=== PATIENT | female | born 1935 | race Caucasian/White ===

== ENCOUNTER 2021-08-20 16:54 | Inpatient (IN) ==
[2021-08-20] MEDS ORDERED: dexAMETHasone**PF** 10 MG/ML VIAL IV ONE (23:12)
[2021-08-20] MEDS ORDERED: SODIUM CHLORIDE 0.9% 1000ML 1,000 ML IV ONE (23:12)
[2021-08-20] MEDS ORDERED: ACETAMINOPHEN 1,000 MG/100 ML VIAL IV STA (23:12)
[2021-08-20 23:51] LABS: Basophils # (auto) 0.03 K/uL (0-0.2); Basophils % (auto) 0.5 %; Eosinophils # (auto) 0.14 K/uL (0-0.5); Eosinophils % (auto) 2.1 %; Hematocrit (blood only) 47.2 % (37-47); Hemoglobin 15.6 g/dL (12.0-16.0); Immature Granulocytes # (auto) 0.01 K/uL (0.00-0.02); Immature Granulocytes % (auto) 0.2 %; Lymphocytes # (auto) 2.57 K/uL (1.2-3.4); Lymphocytes % (auto) 39.2 %; Mean Corpuscular Hemoglobin 30.4 pg (25-34); Mean Corpuscular Hgb Conc 33.1 g/dL (32-36); Mean Corpuscular Volume 91.8 fL (80-100); Mean Platelet Volume 9.9 fL (7.4-10.4); Monocytes % (auto) 4.6 %; Neutrophils % (auto) 53.4 %; Platelet Count 226 K/uL (130-400); RDW Standard Deviation 44.1 fL (36.4-46.3); Red Blood Count 5.14 M/uL (4.2-5.4); White Blood Count 6.55 K/uL (4.8-10.8)
[2021-08-20 23:55] LABS: Appearance Urine Clear (Clear); Bacteria Urine Automated 4+ (Negative); Bilirubin Urine Negative (Negative); Blood Urine Negative (Negative); Color Urine Yellow; Glucose Urine UA Negative (Negative); Ketones Urine 1+ (Negative); Leukocyte Esterase Urine Negative (Negative); Nitrite Urine Positive (Negative); Protein Urine Negative (Negative); RBC Urine Automated 0-4 /hpf (0-4); Specific Gravity Urine 1.013 (1.000-1.030); Urobilinogen Urine Negative (Negative)
[2021-08-21 00:14] LABS: Alanine Aminotransferase 22 U/L (12-78); Albumin Level 4.1 gm/dl (3.4-5.0); Aspartate Aminotransferase 18 U/L (15-37); BUN Creatinine Ratio 14.8 (10-20); Bilirubin Direct 0.1 mg/dl (0-0.2); Blood Urea Nitrogen 11 mg/dl (7-18); Calcium 9.5 mg/dl (8.5-10.1); Carbon Dioxide 26 mmol/L (21-32); Chloride 105 mmol/L (98-107); Creatinine Clr Calc Pharmacy 42.8 ml/min; Est GFR (African American) 80.5 ml/min; Est GFR (Non-African American) 69.4 ml/min; Glucose 96 mg/dl (70-99); Lipase 320 U/L (73-393); Magnesium 2.4 mg/dl (1.8-2.4); Potassium 3.9 mmol/L (3.5-5.1); Sodium 139 mmol/L (136-145)
[2021-08-21 00:23] LABS: Albumin Globulin Ratio 0.9 (0.9-2); Alkaline Phosphatase 97 U/L (45-117); Bilirubin,Total 0.4 mg/dl (0.2-1); Globulin 4.5 gm/dl (2.5-4.0); Phosphorus 3.6 mg/dl (2.5-4.9); Total Protein 8.6 gm/dl (6.4-8.2); Troponin I < 0.015 ng/ml (0-0.045)
[2021-08-21 00:36] LABS: T4 Free Thyroxine 1.32 ng/dl (0.8-1.6)
[2021-08-21] MEDS ORDERED: OPTIRAY 320 125ml IV ONE (01:03)
--- NOTE | 2021-08-21 02:05 | Emergency Department Note ---
Impression & Plan Changes in vision, Retinal migraine, Macular degeneration, Cerebrovascular disease ED Provider Note NAME: EPI ALEXANDRA AGE: 85 SEX: F ARRIVES VIA: Walk-In INFORMANT: Patient, ED PROVIDER(S): Moses Lopez MD CHIEF COMPLAINT: Vision changes. PLAN: Disposition: Admit MEDICAL DECISION MAKING: The patient is a pleasant 85-year-old woman with a past medical history of hypertension, hyperlipidemia, cerebrovascular disease, migraine headaches, retinal migraines, macular degeneration who presents to the emergency department for evaluation of ongoing vision changes which she describes "spider-like veins" in her field of vision of both eyes that has been ongoing for the past 4 days where she was seen by her food assembler commissary kitchen on Friday and per her report there was no acute changes in her macular degeneration and also seen by her neurologist where she had increased dose of her verapamil per her report for suspected migraine component both instructed to come to the hospital for an MRI if her symptoms do not improve which they did not. She denies any fevers, chills, cough congestion, GI or symptoms. She denies any weakness in her extremities or difficulty with ambulation. On arrival patient is no acute distress, afebrile stable vital signs. She appears clinically dry. She has no focal neurologic deficits. Patient's gross vision is intact at her baseline. EKG without overt acute ischemia. Chest x-ray negative for acute cardiopulmonary process per my preliminary review. WBC, hemoglobin and platelets within normal limits. Chemistry without metabolic acidosis. Electrolytes and FTs unremarkable. Troponin negative/undetectable. Lipase not elevated. T SH is cellulitic 4.6 but with free T4 within normal limits. UA with the possibility of infection albeit with epithelial cells present. Will defer treatment to admitting team given the patient denies urinary symptoms. COVID-19 PCR was negative. Per preliminary stat rad report CT of the head and CTA of the head and neck were performed and negative for ICH, ischemia or severe narrowing or occlusion of large vessels. Given the patient's symptoms that are worse from her baseline the patient is in agreement with plan for admission for further evaluation including MRI. Case was discussed with Dr. Viera, [facility] hospitalist, who will evaluate the patient for admission. Triage Nursing notes reviewed and agree them. Prior medical records reviewed Vital Signs: reviewed and remarkable for no significant abnormalities Differential diagnosis: Infection, dehydration, metabolic abnormality, hypo/hyperglycemia, electrolyte disturbance, anemia, hypoxia, cardiac sources, intracerebral event, toxicologic, neurologic, as well as other pathologies. ER treatment provided: See below. Diagnostics interpreted by me: ECG: Normal sinus rhythm, 66 bpm, no ectopy, no overt ST elevation depression, QTC 406, QRS 80. Cardiac Monitoring: An order for continuous cardiac monitoring was placed and demonstrated normal sinus rhythm, 66 bpm, no ectopy. 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 Otherwise normal wrangell of [place] with no evidence of stenosis, occlusion or aneurysm. Radiologist: Ines Almeida MD Study ready at 01:04 and initial results transmitted at 02:24 Preliminary Findings Only See Final Report For Complete Findings CT HEAD: Comparison: None. There is a skull defect along the outer table of the vertex otherwise no acute skull fracture seen. No ICH, mass effect or edema. No evidence of acute cortical stroke. Periventricular small vessel ischemic change. Moderate generalized brain atrophy. Visualized sinuses and mastoid air cells are clear. Radiologist: Ines Almeida MD Study ready at 01:02 and initial results transmitted at 01:57 Preliminary Findings Only See Final Report For Complete Findings CTA NECK: No stenosis, occlusion or dissection. Mild atherosclerotic disease throughout the aortic arch and origin of great vessels. Mild scattered atherosclerotic disease throughout the bilateral carotid arteries . Otherwise unremarkable bilateral carotid arteries with no stenosis, occlusion or dissection. Normal bilateral vertebral arteries Radiologist: Ines Almeida MD Study ready at 01:02 and initial results transmitted at 02:22 Consultation(s): Case was discussed with Dr. Viera, [facility]ist, who will evaluate the patient for admission. HPI: The patient is a pleasant 85-year-old woman with a past medical history of hypertension, hyperlipidemia, cerebrovascular disease, migraine headaches, retinal migraines, macular degeneration who presents to the emergency department for evaluation of ongoing vision changes which she describes "spider-like veins" in her field of vision of both eyes that has been ongoing for the past 4 days where she was seen by her food assembler commissary kitchen on Friday and per her report there was no acute changes in her macular degeneration and also seen by her neurologist where she had increased dose of her verapamil per her report for suspected migraine component both instructed to come to the hospital for an MRI if her symptoms do not improve which they did not. She denies any fevers, chills, cough congestion, GI or symptoms. She denies any weakness in her extremities or difficulty with ambulation. ROS: See above HPI for pertinent positives & negatives. A total of 10 systems reviewed and were otherwise negative. PAST MEDICAL HISTORY:See Below PAST SURGICAL HISTORY:See Below FAMILY HISTORY:See Below SOCIAL HISTORY:See Below HOME MEDICATIONS:See Below ALLERGIES:See Below VITALS:See Below PHYSICAL EXAMINATION: GENERAL: Awake, alert, well-appearing, in no distress HENT: Normocephalic, atraumatic. Oropharynx with dry mucous membranes and otherwise unremarkable. EYES: Normal conjunctiva. Sclera non-icteric. EOMI. No nystamgus. PEARRL. NECK: Supple. No nuchal rigidity. FROM. No JVD. RESPIRATORY: Clear to auscultation. CARDIAC: Regular rate, normal rhythm. Extremities warm and well perfused. Pulses equal. ABDOMEN: Soft, non-distended. No tenderness to palpation. No rebound or guarding. No masses. RECTAL: Deferred. MUSCULOSKELETAL: Chest examination reveals no tenderness. The back is symmetrical on inspection without obvious abnormality. There is no CVA tenderness to palpation. No joint edema. LOWER EXTREMITIES: Calves are equal size bilaterally and non-tender. No edema. No discoloration. NEURO: Normal sensorium. No sensory or motor deficits noted. 5/5 strength and SILT x 4 extremities. Cerebellar function intact including [id number], alte rnating palms, [id number]. SKIN: No rash or jaundice noted. Moses Lopez MD Past Med/Surg History Medical History (Updated 08/22/21 @ 02:20 by Moses Lopez MD) Hyperlipidemia Hypertension Migraine headache with aura Poor balance Retinal migraine Vertigo Surgical History H/O eye surgery H/O lumpectomy Family History Grandmother Classic migraine Mother Classic migraine Heart disease Father Stroke syndrome Social History Smoking Status: Never smoker Hx Alcohol Use: No Hx Substance Use: No Preferred Language: Wolof Communication Ability: Effective Machine Inspector Required: No Beliefs That Will Affect Care: None Current Living Situation: Family Feels Safe at Home: Yes Assistive Devices: Cane Allergies Allergies Allergy/AdvReac Type Severity Reaction Status Date / Time amoxicillin Allergy Unknown Unknown Verified 08/21/21 06:43 Home Meds Home Medications Medication Instructions Recorded Confirmed cholecalciferol (vitamin D3) 50 2,000 unit PO DAILY tab 07/03/20 08/17/21 mcg (2,000 unit) tablet levothyroxine 75 mcg tablet 75 mcg PO DAILY tab 07/03/20 08/17/21 simvastatin 10 mg tablet 10 mg PO DAILY tab 07/03/20 08/17/21 Previous Rx's Medication Instructions Recorded mecobalamin (vitamin B12) 1,000 1,000 mcg SUBLINGUAL DAILY #30 tab 08/17/21 mcg disintegrating tablet,sublingual ondansetron HCl 4 mg tablet 4 mg PO DAILY PRN #20 tab 08/17/21 (Zofran) verapamil 240 mg 24 hr 240 mg PO DAILY #30 cap 08/17/21 capsule,extended release Results & Data (ED) Vital Signs Vital Signs - 24 hr 08/21/21 04:38 Pulse Rate 63 Pulse Rate [Finger] 62 Blood Pressure [Right Arm] 149/68 H Blood Pressure Mean [Right Arm] 95 Pulse Oximetry 92 Oxygen Delivery Method Room Air Laboratory Data Attestation: I reviewed the patient's lab results. Result diagrams: 08/20/21 23:21 08/20/21 23:21 Lab Results 08/20/21 08/20/21 08/20/21 Range/Units 23:21 23:21 23:21 WBC 6.55 (4.8-10.8) K/uL RBC 5.14 (4.2-5.4) M/uL Hgb 15.6 (12.0-16.0) g/dL Hct 47.2 H (37-47) % MCV 91.8 (80-100) fL MCH 30.4 (25-34) pg MCHC 33.1 (32-36) g/dL RDW Std Deviation 44.1 (36.4-46.3) fL RDW Coeff of Penelope 13.0 (11.5-14.5) % Plt Count 226 (130-400) K/uL MPV 9.9 (7.4-10.4) fL Immature Gran % (Auto) 0.2 % Neut % (Auto) 53.4 % Lymph % (Auto) 39.2 % Linn % (Auto) 4.6 % Eos % (Auto) 2.1 % Baso % (Auto) 0.5 % Neut # (Auto) 3.50 (1.4-6.5) K/uL Lymph # (Auto) 2.57 (1.2-3.4) K/uL Linn # (Auto) 0.30 (0.11-0.59) K/uL Eos # (Auto) 0.14 (0-0.5) K/uL Baso # (Auto) 0.03 (0-0.2) K/uL Immature Gran # (Auto) 0.01 (0.00-0.02) K/uL Sodium 139 (136-145) mmol/L Potassium 3.9 (3.5-5.1) mmol/L Chloride 105 (98-107) mmol/L Carbon Dioxide 26 (21-32) mmol/L Anion Gap 7.0 (3-11) BUN 11 (7-18) mg/dl Creatinine 0.77 (0.6-1.2) mg/dl Est Cr Clr Drug Dosing 42.8 ml/min Est GFR ( Amer) 80.5 ml/min Est GFR (Non-Af Amer) 69.4 ml/min BUN/Creatinine Ratio 14.8 (10-20) Glucose 96 (70-99) mg/dl Calcium 9.5 (8.5-10.1) mg/dl Phosphorus 3.6 (2.5-4.9) mg/dl Magnesium 2.4 (1.8-2.4) mg/dl Total Bilirubin 0.4 (0.2-1) mg/dl Direct Bilirubin 0.1 (0-0.2) mg/dl AST 18 (15-37) U/L ALT 22 (12-78) U/L Alkaline Phosphatase 97 (45-117) U/L Troponin I < 0.015 (0-0.045) ng/ml Total Protein 8.6 H (6.4-8.2) gm/dl Albumin 4.1 (3.4-5.0) gm/dl Globulin 4.5 H (2.5-4.0) gm/dl Albumin/Globulin Ratio 0.9 (0.9-2) Lipase 320 (73-393) U/L TSH 4.630 H (0.300-4.500) uIu/ml Free T4 1.32 (0.8-1.6) ng/dl Urine Color Yellow Urine Appearance Clear (Clear) Urine pH 5.0 (4.5-7.5) Ur Specific Hanson 1.013 (1.000-1.030) Urine Protein Negative (Negative) Urine Glucose (UA) Negative (Negative) Urine Ketones 1+ H (Negative) Urine Blood Negative (Negative) Urine Nitrite Positive A (Negative) Urine Bilirubin Negative (Negative) Urine Urobilinogen Negative (Negative) Ur Leukocyte Esterase Negative (Negative) Urine WBC (Auto) 1-5 (0-5) /hpf Urine RBC (Auto) 0-4 (0-4) /hpf U Hyaline Cast (Auto) 1-5 (0-5) /lpf U Epithel Cells (Auto) 5-10 H (0-5) /lpf Urine Bacteria (Auto) 4+ H (Negative) COVID-19 Eval Order SARS-CoV-2 (PCR) (Negative) 08/20/21 08/20/21 Range/Units 23:28 23:28 WBC (4.8-10.8) K/uL RBC (4.2-5.4) M/uL Hgb (12.0-16.0) g/dL Hct (37-47) % MCV (80-100) fL MCH (25-34) pg MCHC (32-36) g/dL RDW Std Deviation (36.4-46.3) fL RDW Coeff of Penelope (11.5-14.5) % Plt Count (130-400) K/uL MPV (7.4-10.4) fL Immature Gran % (Auto) % Neut % (Auto) % Lymph % (Auto) % Linn % (Auto) % Eos % (Auto) % Baso % (Auto) % Neut # (Auto) (1.4-6.5) K/uL Lymph # (Auto) (1.2-3.4) K/uL Linn # (Auto) (0.11-0.59) K/uL Eos # (Auto) (0-0.5) K/uL Baso # (Auto) (0-0.2) K/uL Immature Gran # (Auto) (0.00-0.02) K/uL Sodium (136-145) mmol/L Potassium (3.5-5.1) mmol/L Chloride (98-107) mmol/L Carbon Dioxide (21-32) mmol/L Anion Gap (3-11) BUN (7-18) mg/dl Creatinine (0.6-1.2) mg/dl Est Cr Clr Drug Dosing ml/min Est GFR ( Amer) ml/min Est GFR (Non-Af Amer) ml/min BUN/Creatinine Ratio (10-20) Glucose (70-99) mg/dl Calcium (8.5-10.1) mg/dl Phosphorus (2.5-4.9) mg/dl Magnesium (1.8-2.4) mg/dl Total Bilirubin (0.2-1) mg/dl Direct Bilirubin (0-0.2) mg/dl AST (15-37) U/L ALT (12-78) U/L Alkaline Phosphatase (45-117) U/L Troponin I (0-0.045) ng/ml Total Protein (6.4-8.2) gm/dl Albumin (3.4-5.0) gm/dl Globulin (2.5-4.0) gm/dl Albumin/Globulin Ratio (0.9-2) Lipase (73-393) U/L TSH (0.300-4.500) uIu/ml Free T4 (0.8-1.6) ng/dl Urine Color Urine Appearance (Clear) Urine pH (4.5-7.5) Ur Specific Hanson (1.000-1.030) Urine Protein (Negative) Urine Glucose (UA) (Negative) Urine Ketones (Negative) Urine Blood (Negative) Urine Nitrite (Negative) Urine Bilirubin (Negative) Urine Urobilinogen (Negative) Ur Leukocyte Esterase (Negative) Urine WBC (Auto) (0-5) /hpf Urine RBC (Auto) (0-4) /hpf U Hyaline Cast (Auto) (0-5) /lpf U Epithel Cells (Auto) (0-5) /lpf Urine Bacteria (Auto) (Negative) COVID-19 Eval Order Covid19 at [facility] SARS-CoV-2 (PCR) NEGATIVE (Negative) Administered Medications Cyanocobalamin (Cyanocobalamin 500 Mcg Tablet (Vitamin B-12)) 1,000 mcg PO DAILY DELMI Stop: 09/20/21 08:59 Last Admin: 08/21/21 08:48 Dose: 1,000 mcg Documented by: [id number] Ceftriaxone Sodium 1,000 mg/ (Dextrose) 50 mls @ 100 mls/hr IV Q24H DELMI; Protocol Stop: 08/31/21 07:59 Last Infusion: 08/21/21 10:13 Dose: 0 mls/hr Documented by: [id number] Admin: 08/21/21 08:48 Dose: 100 mls/hr Documented by: [id number] Levothyroxine Sodium (Levothyroxine Sodium 75 Mcg Tablet) 75 mcg PO DAILYBB DELMI Stop: 09/20/21 07:59 Last Admin: 08/21/21 08:48 Dose: 75 mcg Documented by: [id number] Simvastatin (Simvastatin 10 Mg Tab) 10 mg PO DAILY DELMI Stop: 09/20/21 08:59 Last Admin: 08/21/21 08:48 Dose: 10 mg Documented by: [id number] Verapamil HCl (Verapamil Hcl 240 Mg Tabcr) 240 mg PO DAILY DELMI Stop: 09/20/21 08:59 Last Admin: 08/21/21 08:48 Dose: 240 mg Documented by: [id number] Vitamin D (Cholecalciferol 1,000 Units 25 Mcg Tab) 2,000 units PO DAILY DELMI Stop: 09/20/21 08:59 Last Admin: 08/21/21 08:48 Dose: 2,000 units Documented by: [id number] Discontinued Medications Dexamethasone Sodium Phosphate (DexamethasonePf 10 Mg/Ml Vial) 10 mg IV NOW ONE Stop: 08/20/21 23:13 Last Admin: 08/20/21 23:55 Dose: 10 mg Documented by: [id number] Gadobutrol (Gadobutrol 65ml Vial) 6 ml IV ONCE ONE Stop: 08/21/21 08:04 Last Admin: 08/21/21 08:03 Dose: 6 ml Documented by: [id number] Sodium Chloride (Nss 1000ml) 1,000 mls @ 999 mls/hr IV .Q1H1M ONE Stop: 08/21/21 00:12 Last Infusion: 08/21/21 00:48 Dose: 0 mls/hr Documented by: [id number] Admin: 08/20/21 23:55 Dose: 999 mls/hr Documented by: [id number] Acetaminophen (Ofirmev) 1,000 mg in 100 mls @ 400 mls/hr IV NOW STA Stop: 08/20/21 23:26 Last Infusion: 08/21/21 00:29 Dose: 0 mls/hr Documented by: [id number] Admin: 08/20/21 23:54 Dose: 400 mls/hr Documented by: [id number] Sodium Chloride (Nss 1000ml) 1,000 mls @ 80 mls/hr IV .[id number] DELMI Stop: 08/21/21 19:10 Last Infusion: 08/21/21 12:08 Dose: 0 mls/hr Documented by: [id number] Admin: 08/21/21 08:56 Dose: 80 mls/hr Documented by: [id number] Ioversol (Optiray 320 125ml) 125 ml IV ONCE ONE Stop: 08/21/21 01:04 Last Admin: 08/21/21 01:03 Dose: 117 ml Documented by: [id number] Discharge Plan Visit Data Chief Complaint: Eye Problems Stated Complaint: EYES SEEING MIGRAINE AURA ED Provider: Moses Lopez Discharge Problem: Changes in vision, Retinal migraine, Macular degeneration, Cerebrovascular disease Patient Disposition: Admitted As Inpatient Discharge Instructions Interventions: ED Discharge Assessment Last Done: 08/21/21 06:41
[2021-08-21] MEDS ORDERED: POLYETHYLENE (MIRALAX) 17 GM PACK PO PRN (06:41)
[2021-08-21] MEDS ORDERED: SODIUM CHLORIDE 0.9% 1000ML 1,000 ML IV SCH (06:41)
[2021-08-21] MEDS ORDERED: ONDANSETRON INJ 2 MG/ML 2 ML VIAL IV PRN (06:41)
[2021-08-21] MEDS ORDERED: NITROGLYCERIN SL 0.4 MG/TAB TAB SL PRN (06:41)
[2021-08-21] MEDS ORDERED: ACETAMINOPHEN 325 MG TAB PO PRN (06:41)
--- NOTE | 2021-08-21 07:13 | CT Scan Report ---
CT ANGIOGRAM OF THE NECK CLINICAL HISTORY: Migraine headache. Visual changes. COMPARISON STUDY: No priors. TECHNIQUE: Following the IV administration of 117 of Optiray 320, CT angiogram of the neck was perfor med from the aortic arch to the skull base. Images are reviewed in the axial, sagittal, and coronal p lanes. 3-D MIPS images are created and assessed. IV contrast was administered without complication. A ll measurements were calculated based on NASCET criteria. A dose lowering technique was utilized adh ering to the principles of ALARA. FINDINGS: Thoracic aorta: Visualized portions of the thoracic aorta are normal in caliber. The aortic arch demo nstrates standard 3-vessel anatomy. Right carotid arterial system: The right common carotid artery is widely patent, as are the right int ernal and external carotid arteries. Left carotid arterial system: The left common carotid artery is widely patent, as are the left sales management intern al and external carotid arteries. Vertebral arteries: The vertebral arteries are widely patent bilaterally noting mild right-sided jimena nance. Subclavian arteries: Widely patent bilaterally. Intracranial vasculature: The visualized intracranial vessels at the skull base are patent. Jugular veins: Widely patent bilaterally. Brain parenchyma: The visualized brain parenchyma the skull base is within normal limits noting age-r elated involutional change. Lung apices: Suspect mild emphysema. Intralobular septal thickening is observed at the apices. Soft tissues: The visualized pharyngeal soft tissues are normal in appearance noting angiographic pha se technique. The oropharyngeal airway appears widely patent. The salivary and thyroid glands are nor mal in appearance. No cervical lymphadenopathy is seen. Skeletal structures: The skeletal structures are osteopenic. The visualized calvarium at the skull ba se appears intact. The imaged cervical spine is maintained noting multilevel spondylosis. No lytic or blastic lesion is seen. Sinuses and mastoids: The visualized paranasal sinuses are clear. The mastoid air cells are well pneu matized. IMPRESSION: 1. Unremarkable CT angiogram of the neck. 2. Intralobular septal thickening is noted in the upper lobes. This could be seen with acute versus c hronic congestive change and clinical correlation will be essential. ACT 112: Negative or not required by law. Electronically signed by: Fausto Ivan M.D. 08/21/2021 7:12 AM
--- NOTE | 2021-08-21 07:31 | History and Physical Report ---
DATE OF ADMISSION: 08/21/2021. CHIEF COMPLAINT: Bilateral vision problems. HISTORY OF PRESENT ILLNESS: This is an 85-year-old female with past medical history significant for hypothyroidism, hyperlipidemia, osteoporosis, chronic migraine, macular degeneration comes with vision problems since the last 4-5 days. She is seeing veins with blood in it and also different colors in the eyes and it happens to both eyes on and off, one eye at a time. No headache. She saw her head of design and exam was okay and she saw neurologist on last Friday. Her verapamil dose was increased and advised to come to the ER if it is not getting better, that is why she is here for MRI scan of the brain. Denies any headache. Denies any other complaints. Vision is okay. No double vision, no earache, no runny nose, no sore throat, no cough, no nausea, no vomiting, no chest pain, no shortness of breath. Appetite is okay. Ambulating with a cane. Lives with her daughter. Normal bowel and bladder movements. Currently, resting comfortably and hemodynamically stable. ALLERGIES: AMOXICILLIN. PAST MEDICAL HISTORY: As mentioned above. PAST SURGICAL HISTORY: Cataract and left breast benign tumor removed. MEDICATIONS: The patient is currently on vitamin D 2000 units p.o. daily, levothyroxine 75 mcg p.o. daily, vitamin B12 1000 mcg sublingual daily, Zofran 4 mg p.o. daily p.r.n., simvastatin 10 mg p.o. daily, verapamil 240 mg p.o. daily. FAMILY HISTORY: Significant for daughter has heart disorder; mother had heart disorder, father had stroke, daughter has thyroid disorder. SOCIAL HISTORY: Lives with her daughter. No smoking, no alcohol, no drug use. REVIEW OF SYSTEMS: As per HPI. Rest of review of systems is negative. PHYSICAL EXAMINATION: GENERAL: The patient is old and frail, not in acute distress. VITAL SIGNS: Temperature 36.5, pulse 62, respiratory rate 20, blood pressure 149/68, oxygen 92% on room air. HEENT: Pupils equal, round and reactive to light. Extraocular muscles intact. NECK: No JVD, no neck masses. CARDIOVASCULAR: S1 and S2 heard. Regular rate and rhythm. No murmur, no gallop. RESPIRATORY: Normal AP diameter. No accessory muscle use. No wheezing, no crackles. ABDOMEN: Soft, bowel sounds present, nontender, no distention. CENTRAL NERVOUS SYSTEM: Cranial nerves II-XII grossly intact, nonfocal. power 5/5 all extremities. No pronator drift. Coordination was normal. Sensation is intact. EXTREMITIES: No edema, no erythema. LABORATORY DATA: WBC 6.5, hemoglobin 15.6, hematocrit 47.2, platelets 226. Sodium 139, potassium 3.9, chloride 105, bicarbonate 26, BUN 11, creatinine 0.7, serum glucose 96, calcium 9.5, phosphorus 3.6, magnesium 2.4, total bilirubin 0.4, direct bilirubin 0.1, AST 18, ALT 22, alkaline phosphatase 97. Troponin I less than 0.015. TSH 4.6, free T4 of 1.3, lipase 320. Urinalysis positive for leukocyte esterase and +4 bacteria. SARS-CoV-2 PCR negative. IMAGING DATA: Chest x-ray, no acute findings. CT of the head and CTA of the head and neck, preliminary report was unremarkable. EKG: Normal sinus rhythm at a rate of 66, no acute ST changes seen. ASSESSMENT AND PLAN: An 85-year-old female presents with ongoing vision problem. 1. Bilateral vision problems, the patient is seeing things in different colors, vein like structures in both eyes on and off, one eye at a time. Denies any headaches. Possible visual migraines, patient has history of migraines. Recently the neurologist increased the verapamil dose, but symptoms are not improving. Plan for MRI of the head. We will consult Neurology and monitor in the [facility]. 2. Urinary tract infection, on Rocephin. Follow the cultures. 3. History of hyperlipidemia: Continue statin. 4. Hypothyroidism. Continue Synthroid. 5. Deep venous thrombosis prophylaxis: Sequential compression devices for now. DISPOSITION: Admit to [facility]. PT/OT prior to discharge. Social service to help with discharge planning. Job ID: [id number] [facility]
--- NOTE | 2021-08-21 08:00 | XRay Report ---
XR chest 1V portable CLINICAL HISTORY: Atypical chest pain TECHNIQUE: Single frontal radiograph of the chest was obtained. Comparison: None available at the time of this dictation. FINDINGS: Dextroscoliosis is seen. There is likely mild cardiomegaly. The lungs are clear. No evidence of pleur al effusion or pneumothorax. IMPRESSION: No acute chest disease. ACT 112: Negative or not required by law. Electronically signed by: Phani Lemus M.D. 08/21/2021 7:58 AM
[2021-08-21] MEDS ORDERED: GADOBUTROL 65ML VIAL IV ONE (08:03)
--- NOTE | 2021-08-21 08:09 | Electrocardiogram Report ---
Test Reason : Blood Pressure : / mmHG Vent. Rate : 066 BPM Atrial Rate : 066 BPM P-R Int : 208 ms QRS Dur : 080 ms QT Int : 388 ms P-R-T Axes : 034 006 025 degrees QTc Int : 406 ms Normal sinus rhythm Normal ECG When compared with ECG of 30-JUL-2001 15:15, Borderline criteria for Inferior infarct are no longer Present Confirmed by Luis Yip ([id number]) on 08/21/2021 8:08:57 AM Referred By: Matti Rendon Confirmed By:Luis Yip
--- NOTE | 2021-08-21 08:11 | CT Scan Report ---
CT angio head w con, CT head/brain wo con CLINICAL HISTORY: vision changes/h/o retinal migraine/mac degen TECHNIQUE: Contiguous axial CT images of the head were acquired from the base of the skull to the justus lianet without intravenous contrast administration. CT angiography of the head was performed following intravenous administration of iodinated contrast. Automated dose lowering techniques and/or adjustmen t according to patient size were utilized for this examination. Comparison: None available at the time of this dictation. FINDINGS: CT head: Areas of decreased attenuation are present in the periventricular and subcortical white jose a er bilaterally consistent with small vessel ischemic disease. Generalized cerebral atrophy with comme nsurate enlargement of the ventricles, sulci, and cisterns is also present. There is no acute intracr anial hemorrhage or evidence of acute territorial infarction. No shift of the midline structures, mas s effect, or extra-axial abnormalities are shown. Atherosclerotic calcifications are present in the intracranial segments of the internal carotid arteries. A bony defect is seen in the anterior aspect of the vertex, possibly from prior X RAY EXAMINER OF AIRCRAFT shunt. CTA Head: The anterior and posterior cerebral circulations are patent. The right A1 segment is not v isualized, both anterior cerebral arteries appear to be supplied from the left A1 segment. This likel y represents a congenital finding. Otherwise no hemodynamically significant stenosis, aneurysm, disse ction, or arteriovenous malformation is shown. Atherosclerotic disease is noted. IMPRESSION: 1. No acute intracranial hemorrhage, evidence of acute territorial infarction, or other acute intrac ranial disease process. 2. No occlusion, hemodynamically significant stenosis, aneurysm, dissection, or arteriovenous malfor mation in the major intracranial arteries. Assessment of stenosis of the internal carotid arteries is based on NASCET criteria. ACT 112: Negative or not required by law. Electronically signed by: Phani Lemus M.D. 08/21/2021 8:09 AM
--- NOTE | 2021-08-21 08:26 | Magnetic Resonance Report ---
MRI OF THE BRAIN COMBO CLINICAL HISTORY: Visual changes. Migraine headache. COMPARISON STUDY: CT of the brain dated 08/21/2021. TECHNIQUE: MRI of the brain was performed utilizing various T1 and T2-weighted sequences in the axial , sagittal, and coronal planes. Contrast-enhanced sequences were acquired following the administratio n of 6 cc of Gadavist. FINDINGS: Brain parenchyma: There is age-related involutional change noting minimal microangiopathic disease. T here is no hemorrhage or mass effect. There is no restricted diffusion to suggest acute ischemia. No enhancing mass lesion is identified on the postcontrast images. Garcia-white matter differentiation is preserved. No extra-axial fluid collection is seen. The cerebellar tonsils are normal in configuratio n. Ventricles, sulci, and cisterns: Prominent secondary to involutional change. Pituitary and sella: Unremarkable. Intracranial vasculature: Normal flow voids are maintained at the skull base. Orbits: The bony orbits are grossly intact. Orbital contents are normal in appearance noting bilatera l ocular lens implants. Sinuses and mastoids: Clear. Calvarium: Unremarkable. Cervical cord: Partially visualized cervical spinal cord is normal in morphology and signal intensity . IMPRESSION: No intracranial abnormality is identified. ACT 112: Negative or not required by law. Electronically signed by: Fausto Ivan M.D. 08/21/2021 8:25 AM
[2021-08-21] MEDS: CYANOCOBALAMIN 500 MCG TABLET (VITAMIN B-12) PO SCH (08:48)
[2021-08-21] MEDS: CHOLECALCIFEROL 1,000 UNITS 25 MCG TAB PO SCH (08:48)
[2021-08-21] MEDS: LEVOTHYROXINE SODIUM 75 MCG TABLET PO SCH (08:48)
[2021-08-21] MEDS: VERAPAMIL HCL 240 MG TABCR PO SCH (08:48)
[2021-08-21] MEDS: SIMVASTATIN 10 MG TAB PO SCH (08:48)
[2021-08-21] MEDS: cefTRIAXone SODIUM 1,000 MG in DEXTROSE 5% 50 ML IV SCH (08:48)
--- NOTE | 2021-08-21 09:57 | Neurology Consultation ---
Date of Consultation August 21, 2021 Assessment & Plan (1) Retinal migraine: (2) Floaters in visual field: (3) Macular degeneration: This is a patient with a longstanding history of ocular migraine who has been fairly stable for many years with a low-dose of verapamil, typically only 2-3 episodes per year. More recently, however, she has been experiencing an increased frequency of ocular migraine episodes. Her history is also notable for significant bilateral macular degeneration and glaucomatous appearing optic nerves but with normal ocular pressures in speaking with Dr. Melendrez, optometry, who saw her on August 17, 2021. Her current symptoms consist largely of visual floaters which are likely due to irregularities in the vitreous as well as some visual after images, numbers, and letters, which I suspect are a feature of her macular degeneration. She has had an increase in her ocular migraine, however, and we have increased her dosage of verapamil to 240 mg/day. She otherwise has an intact neurological examination and has unremarkable neuro imaging including CT of the head, CT angiography of the head and neck, and brain MRI. 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 I would like her to continue with verapamil ER 240 mg/day for prophylaxis of ocular migraine. I would also recommend starting a low-dose of topiramate for ocular migraine prevention, would start with 25 mg twice daily. Continue treatment of urinary tract infection which may be a triggering factor for patient's ocular migraines recently. Patient will need continued outpatient follow-up with ophthalmology as well, she typically sees Dr. Rios in [place]. History of Present Illness Reason for Consultation: The patient is an 85-year-old female who has been following with me for a number of years for stable retinal migraine, typically experiencing only a few episodes per year. However, she was seen in neurology clinic on August 17 by Karen Lewis, one of our APCs for what sounded like a refractory retinal or ocular migraine episode that began last week and persisted for several days. She does not complain of an associated headache. She has described her ocular migraine aura as flashes of light in the right eye that migrated from bottom to top. She had another episode last week that persisted for about 20 to 30 minutes characterized by a white strength with pink and blue curvature on the side. She has had transient episodes where she would perceive numbers, words, and letters, she recalls perceiving the number 13 as well as the letter D during the evening. Currently, she complains of webs or lines in her visual field, both eyes, reddish coloration, these lines tend to move within her visual field, accentuated with eye movement. She denies any ocular pain or headache. History notable for macular degeneration, especially the left eye. Follows with Dr. Rios, ophthalmology in [place]. Was seen recently by Dr. Melendrez, local eye doctor affiliated with Dr. Su. I did discuss her case with Dr. Melendrez over the telephone this morning. She does have evidence of rather significant bilateral macular degeneration as well as elevated cup-to-disc ratios but normal ocular pressures. She did not identify any significant acute ocular pathology. In speaking with the patient and her daughter who was present at bedside, it does not sound like any specific ocular pathology was identified. I have been prescribing this patient verapamil for prevention of ocular migraine, we had increased her dosage of this medication from 120 to 240 mg/day. Given the persistence of her symptoms, however, she was referred to the emergency department for further evaluation and management. She did have a CT of the head including CT angiogram of the head and neck completed yesterday. The studies were unremarkable, no vascular lesion, no hemorrhage or acute process. A follow-up brain MRI was completed this morning which was negative for stroke or other acute process or significant abnormality. I reviewed the images as well as the radiologist's interpretation of these tests. Attending Physician: Rafal Cronin MD Allergies Allergy/AdvReac Type Severity Reaction Status Date / Time amoxicillin Allergy Unknown Unknown Verified 08/21/21 06:43 Home Medications Medication Instructions Recorded Confirmed Type cholecalciferol (vitamin D3) 50 2,000 unit PO DAILY tab 07/03/20 08/17/21 History mcg (2,000 unit) tablet levothyroxine 75 mcg tablet 75 mcg PO DAILY tab 07/03/20 08/17/21 History simvastatin 10 mg tablet 10 mg PO DAILY tab 07/03/20 08/17/21 History mecobalamin (vitamin B12) 1,000 1,000 mcg SUBLINGUAL DAILY #30 tab 08/17/21 08/17/21 Rx mcg disintegrating tablet,sublingual ondansetron HCl 4 mg tablet 4 mg PO DAILY PRN #20 tab 08/17/21 08/17/21 Rx (Zofran) verapamil 240 mg 24 hr 240 mg PO DAILY #30 cap 08/17/21 08/17/21 Rx capsule,extended release Patient History Medical History Hyperlipidemia Hypertension Migraine headache with aura Poor balance Retinal migraine Vertigo Surgical History H/O eye surgery H/O lumpectomy Family History Grandmother Classic migraine Mother Classic migraine Heart disease Father Stroke syndrome Social History Smoking Status: Never smoker Hx Alcohol Use: No Hx Substance Use: No Preferred Language: Maori Communication Ability: Effective 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 Machine 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 Required: No Beliefs That Will Affect Care: None Current Living Situation: Family Feels Safe at Home: Yes Safety Concerns: Feels Safe At This Time Assistive Devices: Cane Review of Systems Constitutional: no fever and no chills Eyes: as per Subjective / HPI and + worsening vision; no diplopia and no eye pain Ear, Nose, Mouth, Throat: no ear pain and no hearing loss Respiratory: no cough and no dyspnea Cardiovascular: no chest pain and no palpitations Gastrointestinal: no constipation and no diarrhea/loose stools Genitourinary: no urinary urgency and no urinary incontinence Musculoskeletal: no muscle weakness and no muscle atrophy Integumentary: no rash and no lesions Neurologic: as per Subjective / HPI; no headache(s) and no memory loss Psychiatric: no behavioral changes, no depression, no abnormal sleep pattern and no anxiety Hematologic / Lymphatic: no easy bruising and no lymphadenopathy Exam (Neuro) Constitutional: well developed and well nourished; no acute distress Eyes: normal visual newton by confrontation, PERRL, normal accommodation and EOM intact bilaterally; no fundoscopic abnormality, no nystagmus and no papilledema Cardiovascular: Vessels: normal carotid upstroke; no carotid bruit Neurologic: Oriented to:: Person, Place and Time Memory: Short Term Intact and Remote Intact Attention: Span Intact and Concentration Intact Language: Naming Objects and Repeating Phrases Speech Fluency: negative Dysarthria Speech Aphasia: negative Aphasia Fund of Knowledge: Current Events, Past History and Vocabulary Cranial Nerves: Normal III, IV, (Pupils equal round reactive to light and accommodation, eye movements normal), V (Facial sensation intact), VII (There is no facial droop or weakness), VIII (Hearing intact), IX, X (Palate elevates to midline), XI (Shoulder shrug intact) and XII (Tongue protrudes to midline); Abnorm II (Patient does have some loss of the central visual field with the left eye as well as poor visual acuity.) Motor Strength: Normal Lower Extremities and Normal Upper Extremities; negative Pronator Drift Motor Tone: Normal Lower Extremities and Normal Upper Extremities Muscle Bulk/Involuntary Movements: Action Tremor; negative Muscle Atrophy or Pill Rolling Tremor Sensation: Light Touch Intact, Pain/Temperature Intact, Vibration Intact and Proprioception Intact Coordination: Normal; negative Limited Balance, Dysdiadochokinesia, Finger-Nose Abnormal or Heel-Stratton Abnormal Deep Tendon Reflexes: Rt Triceps: 2+, Lt Triceps: 2+, Rt Biceps: 2+, Lt Biceps: 2+, Rt Brachioradialis: 2+, Lt Brachioradialis: 2+, Rt Patellar: 2+, Lt Patellar: 2+, Rt Ankle: 2+ and Lt Ankle: 2+ Special Tests: negative Babinski Present Details: Gait not tested in the context of patient's current medical/neurological status. Results & Data ([facility]) Vital Signs (Past 12 Hours) Vital Signs Pulse Pulse Resp BP Pulse Ox 08/21/21 09:31 88 16 175/90 H 96 08/21/21 08:57 85 16 175/90 H 94 08/21/21 06:34 68 124/58 L 94 08/21/21 04:38 63 62 149/68 H 92 08/21/21 02:01 57 L 128/65 94 08/21/21 00:02 66 182/80 H 96 08/20/21 23:28 67 97 08/20/21 22:25 67 164/78 H 96 Laboratory Results WBC 6.55, hemoglobin 15.6, hematocrit 47.2, platelet count 226, sodium 139, potassium 3.9, BUN 11, creatinine 0.77, glucose 96, calcium 9.5, magnesium 2.4, AST 18, ALT 22, troponin less than 0.015, TSH 4.630, free T4 1.32, urinalysis potentially consistent with infection Diagnostic Findings CT of the head, CT angiography of the head and neck, and brain MRI are as described in the history of present illness, I reviewed the images as well as the radiologist interpretation of these tests. Electrocardiogram reveals a normal sinus rhythm, 66 bpm. Coding Level of Care Code 78225 Initial In Care Lvl 3 Diagnoses Retinal migraine G43.109 Floaters in visual field H43.399 Macular degeneration H35.30
[2021-08-21] MEDS ORDERED: Nursing to Pharmacy Communication SCH (11:45)
[2021-08-22] MEDS: LEVOTHYROXINE SODIUM 75 MCG TABLET PO SCH (05:55)
[2021-08-22 06:21] LABS: Basophils # (auto) 0.02 K/uL (0-0.2); Basophils % (auto) 0.2 %; Eosinophils # (auto) 0.03 K/uL (0-0.5); Eosinophils % (auto) 0.3 %; Hematocrit (blood only) 40.7 % (37-47); Hemoglobin 13.3 g/dL (12.0-16.0); Immature Granulocytes # (auto) 0.01 K/uL (0.00-0.02); Immature Granulocytes % (auto) 0.1 %; Lymphocytes # (auto) 2.34 K/uL (1.2-3.4); Lymphocytes % (auto) 23.8 %; Mean Corpuscular Hemoglobin 29.6 pg (25-34); Mean Corpuscular Hgb Conc 32.7 g/dL (32-36); Mean Corpuscular Volume 90.6 fL (80-100); Monocytes # (auto) 0.54 K/uL (0.11-0.59); Monocytes % (auto) 5.5 %; Neutrophils # (auto) 6.89 K/uL (1.4-6.5); Neutrophils % (auto) 70.1 %; Platelet Count 219 K/uL (130-400); RDW Coefficient of Variation 13.2 % (11.5-14.5); RDW Standard Deviation 43.5 fL (36.4-46.3); Red Blood Count 4.49 M/uL (4.2-5.4); White Blood Count 9.83 K/uL (4.8-10.8)
[2021-08-22 06:57] LABS: BUN Creatinine Ratio 23.7 (10-20); Calcium 9.1 mg/dl (8.5-10.1); Creatinine Clr Calc Pharmacy 50.8 ml/min; Est GFR (African American) 92.5 ml/min; Est GFR (Non-African American) 79.8 ml/min; Magnesium 2.3 mg/dl (1.8-2.4); Potassium 4.5 mmol/L (3.5-5.1)
[2021-08-22] MEDS: cefTRIAXone SODIUM 1,000 MG in DEXTROSE 5% 50 ML IV SCH (08:31)
[2021-08-22] MEDS: VERAPAMIL HCL 240 MG TABCR PO SCH (08:31)
[2021-08-22] MEDS: CHOLECALCIFEROL 1,000 UNITS 25 MCG TAB PO SCH (08:32)
[2021-08-22] MEDS: SIMVASTATIN 10 MG TAB PO SCH (08:32)
[2021-08-22] MEDS: CYANOCOBALAMIN 500 MCG TABLET (VITAMIN B-12) PO SCH (08:32)
[2021-08-22] MEDS: TOPIRAMATE 25 MG TAB PO SCH ×2 (11:48→19:44)
--- NOTE | 2021-08-22 17:44 | Hospitalist Progress Note ---
Date of Service August 22, 2021 Assessment & Plan (1) Changes in vision: Plan: Patient is an 85 yr female who presents with ongoing vision problem. Retinal migraine Macular degeneration Floaters in visual field --Brain MRI:No intracranial abnormality is identified. Continue with FML ER to 40 mg/day for ocular migraine prophylaxis Started on topiramate 25 mg twice daily Appreciate neurology input Needs follow-up with neurology and ophthalmology (follows with Dr. Rios in [place]) upon discharge Urinary tract infection Urine culture growing gram-negative bacilli Continue Rocephin for now Hyperlipidemia: Continue statin Hypothyroidism Continue levothyroxine DVT prophylaxis SCDs for now CODE STATUS Full code Disposition PT OT prior to discharge Admission and Anticipated Discharge Date Admission Date: August 21, 2021 Subjective Patient is seen and examined bedside Continues to have visual symptoms Denies any headache, dizziness, nausea, chest pain, abdominal pain, dysuria, hematuria Offers no other complaints Family at bedside Review of Systems Review of Systems: All systems reviewed & are unremarkable except as noted in Subjective Physical Exam Physical Exam: Physical Exam: Vitals signs as noted above General Appearance:Moderately built and nourished, no apparent distress Head: normocephalic, Atraumatic Eyes: normal inspection, EOMI Neck: supple, Trachea midline Respiratory/Chest: Normal breath sounds, CTA, No accessory muscle use Cardiovascular: S1, S2, No murmur Abdomen/GI:Soft, Non tender, Bowel sounds present Extremities/Musculoskeletal:normal inspection, no edema Neurologic/Psych:AAOX3, grossly no focal neurological deficits Skin: normal color, warm Results & Data Results & Data ([facility]) Vital Signs (Past 12 Hours) Vital Signs Temp Pulse Pulse Resp BP BP Pulse Ox 08/22/21 16:00 69 08/22/21 15:04 36.5 C 66 20 111/61 92 08/22/21 11:36 36.7 C 58 L 20 108/53 L 91 08/22/21 07:37 36.8 C 66 18 155/80 H 94 08/22/21 07:00 59 L Pulse Ox 08/22/21 16:00 92 08/22/21 15:04 08/22/21 11:36 08/22/21 07:37 08/22/21 07:00 Laboratory Results Short CBC 08/22/21 Range/Units 06:04 WBC 9.83 (4.8-10.8) K/uL Hgb 13.3 (12.0-16.0) g/dL Hct 40.7 (37-47) % Plt Count 219 (130-400) K/uL [facility] 08/22/21 06:04 Sodium 138 Potassium 4.5 D Chloride 105 Carbon Dioxide 28 BUN 15 Creatinine 0.65 Glucose 95 Calcium 9.1
[2021-08-23] MEDS: LEVOTHYROXINE SODIUM 75 MCG TABLET PO SCH (06:11)
[2021-08-23 07:31] LABS: BUN Creatinine Ratio 24.1 (10-20); Calcium 8.8 mg/dl (8.5-10.1); Creatinine Clr Calc Pharmacy 50.4 ml/min; Est GFR (African American) 92.5 ml/min; Est GFR (Non-African American) 79.8 ml/min
[2021-08-23] MEDS: cefTRIAXone SODIUM 1,000 MG in DEXTROSE 5% 50 ML IV SCH (09:18)
[2021-08-23] MEDS: CHOLECALCIFEROL 1,000 UNITS 25 MCG TAB PO SCH (09:19)
[2021-08-23] MEDS: SIMVASTATIN 10 MG TAB PO SCH (09:19)
[2021-08-23] MEDS: CYANOCOBALAMIN 500 MCG TABLET (VITAMIN B-12) PO SCH (09:19)
[2021-08-23] MEDS: TOPIRAMATE 25 MG TAB PO SCH (09:20)
[2021-08-23] MEDS: VERAPAMIL HCL 240 MG TABCR PO SCH (09:22)
[2021-08-23] MEDS ORDERED: LACTOBACILLUS ACIDOPHILUS 1 GM PACK PO SCH (12:00)
--- NOTE | 2021-08-23 13:52 | Hospitalist Progress Note ---
Date of Service August 23, 2021 Assessment & Plan (1) Changes in vision: Plan: Patient is an 85 yr female who presents with ongoing vision problem. Retinal migraine Macular degeneration Floaters in visual field --Brain MRI:No intracranial abnormality is identified. Continue with FML ER to 40 mg/day for ocular migraine prophylaxis Started on topiramate 25 mg twice daily Appreciate neurology input Needs follow-up with neurology and ophthalmology (follows with Dr. Rios in [place]) upon discharge Residual symptoms slowly improving Urinary tract infection Urine culture growing Klebsiella Continue Rocephin Day #3 Hyperlipidemia: Continue statin Hypothyroidism Continue levothyroxine DVT prophylaxis SCDs for now CODE STATUS Full code Disposition Home Admission and Anticipated Discharge Date Admission Date: August 21, 2021 Subjective Patient is seen and examined bedside Visual symptoms less prominent today Denies any headache, dizziness, nausea, chest pain, abdominal pain, dysuria, hematuria No new complaints Prefers to be discharged home Review of Systems Review of Systems: All systems reviewed & are unremarkable except as noted in Subjective Physical Exam Physical Exam: Physical Exam: Vitals signs as noted above General Appearance:Moderately built and nourished, no apparent distress Head: normocephalic, Atraumatic Eyes: normal inspection, EOMI Neck: supple, Trachea midline Respiratory/Chest: Normal breath sounds, CTA, No accessory muscle use Cardiovascular: S1, S2, No murmur Abdomen/GI:Soft, Non tender, Bowel sounds present Extremities/Musculoskeletal:normal inspection, no edema Neurologic/Psych:AAOX3, grossly no focal neurological deficits Skin: normal color, warm Results & Data Results & Data ([facility]) Vital Signs (Past 12 Hours) Vital Signs Temp Pulse Pulse Resp BP Pulse Ox 08/23/21 11:44 36.6 C 71 18 141/66 H 95 08/23/21 07:23 36.4 C L 48 L 19 112/57 L 94 08/23/21 06:16 54 L 08/23/21 04:00 36.7 C 54 L 20 115/60 96 Laboratory Results [facility] 08/23/21 06:03 Sodium 140 Potassium 4.0 Chloride 107 Carbon Dioxide 27 BUN 16 Creatinine 0.65 Glucose 83 Calcium 8.8
--- NOTE | 2021-08-23 13:58 | Discharge Summary ---
Date of Service August 23, 2021 Admission HPI Per Admitting Provider CHIEF COMPLAINT: Bilateral vision problems. HISTORY OF PRESENT ILLNESS: This is an 85-year-old female with past medical history significant for hypothyroidism, hyperlipidemia, osteoporosis, chronic migraine, macular degeneration comes with vision problems since the last 4-5 days. She is seeing veins with blood in it and also different colors in the eyes and it happens to both eyes on and off, one eye at a time. No headache. She saw her plumbing engineering draftsperson and exam was okay and she saw neurologist on last Friday. Her verapamil dose was increased and advised to come to the ER if it is not getting better, that is why she is here for MRI scan of the brain. Denies any headache. Denies any other complaints. Vision is okay. No double vision, no earache, no runny nose, no sore throat, no cough, no nausea, no vomiting, no chest pain, no shortness of breath. Appetite is okay. Ambulating with a cane. Lives with her daughter. Normal bowel and bladder movements. Currently, resting comfortably and hemodynamically stable. Admission Exam Per Admitting Provider PHYSICAL EXAMINATION: GENERAL: The patient is old and frail, not in acute distress. VITAL SIGNS: Temperature 36.5, pulse 62, respiratory rate 20, blood pressure 149/68, oxygen 92% on room air. HEENT: Pupils equal, round and reactive to light. Extraocular muscles intact. NECK: No JVD, no neck masses. CARDIOVASCULAR: S1 and S2 heard. Regular rate and rhythm. No murmur, no gallop. RESPIRATORY: Normal AP diameter. No accessory muscle use. No wheezing, no crackles. ABDOMEN: Soft, bowel sounds present, nontender, no distention. CENTRAL NERVOUS SYSTEM: Cranial nerves II-XII grossly intact, nonfocal. power 5/5 all extremities. No pronator drift. Coordination was normal. Sensation is intact. EXTREMITIES: No edema, no erythema. Principal Diagnosis Retinal migraine Urinary tract infection Discharge Data Allergies Allergy/AdvReac Type Severity Reaction Status Date / Time amoxicillin Allergy Unknown Unknown Verified 08/21/21 06:43 Consultations 08/21/21 03:06 ED Decision to Admit Stat 08/21/21 08:00 Consult Neurology Routine Ordered Studies 08/20/21 23:12 CT angio head w con Urgent CT angio neck with con Urgent CT head/brain wo con Urgent 08/21/21 06:41 MR brain wo/w con Urgent Hospital Course (1) Changes in vision: Patient is an 85 yr female who presents with ongoing vision problem. Retinal migraine Macular degeneration Floaters in visual field --Brain MRI:No intracranial abnormality is identified. Continue with FML ER to 40 mg/day for ocular migraine prophylaxis Started on topiramate 25 mg twice daily Appreciate neurology input Needs follow-up with neurology and ophthalmology (follows with Dr. Rios in [place]) upon discharge Residual symptoms slowly improving Urinary tract infection Urine culture growing Klebsiella Continue Rocephin Day #3 Hyperlipidemia: Continue statin Hypothyroidism Continue levothyroxine DVT prophylaxis SCDs for now CODE STATUS Full code Disposition Home Total Time Total Time Spent Total Time Spent (In Minutes): 39 minutes Discharge Plan Discharge Items Patient Disposition: Home - Self-Care Reason For Visit: EYE PROBLEM Discharge Diagnosis: Retinal migraine Urinary tract infection Activity: Per Instructions section Exercise/Sports: Gradually increase as tolerated Driving/Machine Use: Not permitted until cleared by your neurologist. Non-emergency contact: Primary Care Provider and Neurologist Call non-emergency contact if: you have any medication questions, your symptoms worsen, your pain is concerning for you and you have a fever Follow-up/Referrals: Rocio Echevarria PA-C [Physician Manager Of Clinical] - 12/11/21 3:30 pm ([facility] [address] [facility] [id number] You have been placed on a wait list in case a closer appointment becomes available. ) Toribio Hernandez MD [Primary Care Provider] - (Date & Time 08/28/2021 11:20 AM Provider Toribio Hernandez MD Department [facility]3] ) Diet: Heart Healthy Addtl Attending Provider Instructions: Follow-up with your primary care physician Dr. Hernandez on 08/28/2021 11:20 AM Follow-up with your neurologist Rocio Echevarria PA-C on December 11, 2021 at 3:30 PM as scheduled Complete the antibiotic course cefdinir for 2 more days as prescribed.: Start taking from August 24, 2021. Seek immediate medical attention if your symptoms reoccur or worsen Please take all medications as instructed on discharge list below. Please call if you have any questions or problems. You can reach a [facility] hospitalist on duty at [facility] 24 hours a day by calling [phone] Pending Studies at Discharge: No Stand-Alone Forms: My [facility], Smoking Cessation Medications and DC Order Prescriptions: New topiramate 25 mg Tablet 25 mg PO BID 30 Days Qty: 60 RF: 1 Lactobacillus acidoph-L.bulgar [Floranex] 100 million cell Granules In Packet 1 g PO TIDM Qty: 30 RF: 0 cefdinir 300 mg capsule 300 mg PO BID Qty: 4 RF: 0 Continued cholecalciferol (vitamin D3) 50 mcg (2,000 unit) tablet 2,000 unit PO DAILY RF: 0 levothyroxine 75 mcg tablet 75 mcg PO DAILY RF: 0 simvastatin 10 mg tablet 10 mg PO DAILY RF: 0 verapamil 240 mg capsule,ext rel. pellets 24 hr 240 mg PO DAILY Qty: 30 RF: 2 ondansetron HCl [Zofran] 4 mg tablet 4 mg PO DAILY PRN (Reason: nausea and vomiting) Qty: 20 RF: 1 mecobalamin (vitamin B12) 1,000 mcg tablet,disintegrating 1,000 mcg sublingual DAILY Qty: 30 RF: 7 Discharge Orders: Discharge Order (Routine); Ordered 08/23/21 Ordered By: Chase Del Rosario Admission Data Admit Date/Time: 08/21/21 05:13 Attending Provider: Chase Del Rosario Admit Provider: Lino Viera Primary Care Provider: Toribio Hernandez I. Other Providers: Lino Viera ; Matti Rendon
== END 2021-08-23 14:55 | disposition home or self-care (01) | DRG 103 ==
LOC: ED 16:54 → SUATTDRO 08-21 05:13 → EDINP 08-21 05:13 → 2N 08-21 06:41